=== PATIENT | male | born 1940 | race Caucasian/White ===

== ENCOUNTER 2019-02-17 09:35 | Inpatient (IN) | payer OTHER, MEDICAID ==
[~2019-02-17] VITALS: Ht 167.6 cm; Wt 77.7 kg
[2019-02-17 09:50] VITALS: Ht 167.6 cm; Wt 77.7 kg
--- NOTE | 2019-02-17 10:00 | NUR ---
PT BIB SON C/O CP X3 DAYS, PT STS HE TOOK AN ISOSOBIDE "LAST NIGHT AND IT HELPED, BUT THE PAIN STILL COMES AND GOES". PT PLACED ON FULL CM, CALL LIGHT WITHIN REACH, DAMARI RAILS RAISED FOR SAFETY, IN POSITION OF COMFORT. SON AT BEDSIDE.
[2019-02-17 10:22] LABS: BASOPHIL % 0.8 % (0-2); PLATELET COUNT 233 x10^3mcL (130-400); RED CELL DISTRIBUTION WIDTH 13.3 % (11.5-14.5)
[2019-02-17 10:24] LABS: CALCIUM 8.6 mg/dL (8.5-10.1); CARBON DIOXIDE 29.6 mmol/L (21-32); CHLORIDE SERUM 104 mmol/L (98-107); CREATININE SERUM 1.4 mg/dL (0.7-1.3); GLUCOSE SERUM 109 mg/dL (74-106); POTASSIUM SERUM 4.5 mmol/L (3.5-5.1); SODIUM SERUM 139 mmol/L (136-145)
[2019-02-17 10:30] LABS: ALKALINE PHOSPHATASE 111 U/L (46-116); ALT/SGPT 31 U/L (16-63); AST/SGOT 21 U/L (15-37); BILIRUBIN TOTAL 0.5 mg/dL (0.20-1.00); TOTAL PROTEIN, SERUM 6.9 g/dL (6.4-8.2)
--- NOTE | 2019-02-17 10:33 | NUR ---
DR MAN MADE AWARE OF PT'S VS, AWAITING ORDERS.
[2019-02-17 10:35] LABS: ALBUMIN 3.2 g/dL (3.4-5.0)
--- NOTE | 2019-02-17 10:41 | NUR ---
PT MEDICATED PER EMAR.
[2019-02-17] MEDS ORDERED: HYDROCHLOROTHIA25 MG PO (12:08)
[2019-02-17] MEDS ORDERED: ISOSORBIDE MONO20 MG PO (12:09)
[2019-02-17] MEDS ORDERED: ISOSORBIDE DINIT5 M2 PO (12:10)
[2019-02-17] MEDS ORDERED: ASPIR LOW81 MG PO (12:11)
[2019-02-17] MEDS ORDERED: LOSARTAN POTASS50 M1 PO (12:12)
[2019-02-17] MEDS ORDERED: GOOD SENSE OMEP20 MG PO (12:12)
[2019-02-17] MEDS ORDERED: LIPI20 PO (12:13)
--- NOTE | 2019-02-17 12:48 | NUR ---
REPORT GIVEN TO KARLY BRANDT TO ASSUME CARE OF PT.
--- NOTE | 2019-02-17 12:49 | NUR ---
SPOKE WITH KARLY BRANDT ATTEMPTING TO GIVE REPORT, PER KARLY REQUEST, I WILL CALL BACK IN APPROX 5 MINS.
--- NOTE | 2019-02-17 13:03 | NUR ---
REPORT GIVEN TO RIKKI BRANDT TO ASSUME CARE OF PT.
[2019-02-17 13:39] LABS: MAGNESIUM 1.9 mg/dL (1.8-2.4)
[2019-02-17 13:40] LABS: CHOLESTEROL/HDL RATIO 3.7
[2019-02-17 13:59] VITALS: BP 128/61
[2019-02-17 17:56] VITALS: BP 111/56
--- NOTE | 2019-02-17 18:21 | NUR ---
PATIENT IS STABLE. NO APPARENT SIGNS OF PAIN, SOB, OR RESPIRATORY DISTRESS. PATIENT DENIES CHEST PAIN OR PRESSURE, DIZZINESS, OR HEADACHE. RESTING COMFORTABLY IN BED. FAMILY AT BEDSIDE. PATIENT IS ON ROOM AIR. ALERT AND ORIENTED X4. IV TO RIGHT AC IS SALINE LOCKED. NO EDEMA OR ERYTHEMA NOTED AT SITE. QUESTIONS AND CONCERNS ADDRESSED. SAFETY PRECAUTIONS IN PLACE. WILL ENDORSE CARE TO LINOTYPE WORKER NURSE.
--- NOTE | 2019-02-17 19:19 | NUR ---
ENDORSED CARE TO TEXTILE CONVERTER NURSE CHOLLINZacarias.
--- NOTE | 2019-02-17 19:30 | NUR ---
PT RECIEVED FROM DAY NURSE. PT RESTING IN BED COMFORTABLY, DAUGHTER IN LAW AT BEDSIDE. PT A/OX4, KYRGYZ SPEAKING. NO COMPLAINTS OF PAIN AT THIS TIME. TELE 13, SINUS RONALDO. DENIES CHEST PAIN, DIZZINESS, N/V, AND PALPATATIONS. BREATHING EVEN AND UNLABORED ON RA, DENIES SOB. BOWEL SOUNDS ACTIVE X4, LAST BM 02/16. RAC IV CDI. BED AT LOWEST POSITION, CALL LIGHT WITHIN REACH. WILL CONTINUE TO MONITOR.
[2019-02-17 20:27] VITALS: BP 119/57
[2019-02-17 20:37] LABS: microscopic required? NO
[2019-02-17 20:48] LABS: UA SPECIFIC GRAVITY <=1.005 (1.005-1.035); urine erythrocyte NEGATIVE (NEGATIVE)
[2019-02-17 21:09] LABS: AMPHETAMINE QUAL UR NONE DETECTED (See below)
--- NOTE | 2019-02-17 21:43 | NUR ---
PT COMPLAINING OF 8/10 PAIN, HEADACHE. GAVE PRN TYLENOL. WILL CONTINUE TO MONITOR.
--- NOTE | 2019-02-17 23:21 | NUR ---
PT C/O BEING UNABLE TO SLEEP. DENIES SANCHEZ AT THIS TIME. AMBIEN GIVEN PER ORDER. WILL CONTINUE TO MONITOR.
--- NOTE | 2019-02-18 00:57 | NUR ---
PT RESTING IN BED COMFORTABLY WITH EYES CLOSED. NO S/S OF PAIN AT THIS TIME NO SOB NOTED AT THIS TIME. BREATHING EVEN AND UNLABORED. CALL LIGHT WITHIN REACH. BED AT LOWEST POSITION. WILL CONTINUE TO MONITOR.
--- NOTE | 2019-02-18 02:34 | NUR ---
I HAVE REVIEWED THE DATA COLLECTION BY RIKKI LAWSON: WINNIE ARIAS ENTERED ON 02/17-02/18 I CONCUR WITH THE DATA AND ANY EXCEPTIONS OR COMMENTS ARE LISTED BELOW:
--- NOTE | 2019-02-18 05:41 | NUR ---
PT RESTING IN BED WITH EYES CLOSED. NO S/S OF PAIN OR DISCOMFORT AT THIS TIME. BREATHING EVEN AND UNLABORED, NO S/S OF SB. NO SIGNIFICANT CHANGES THIS SHIFT. BED AT LOWEST POSITION. CALL LIGHT WITHIN REACH. WILL ENDORSE TO DAY SHIFT.
[2019-02-18 05:50] VITALS: BP 129/64
[2019-02-18 07:07] LABS: PLATELET COUNT 212 x10^3mcL (130-400); RED CELL DISTRIBUTION WIDTH 13.1 % (11.5-14.5)
--- NOTE | 2019-02-18 07:10 | NUR ---
RECEIVED PT FROM BRET RN. PT AA/OX4. DENIES CHEST PAIN. NO COMPLAINT OF PAIN AT THIS TIME. NO N/V. NO SOB ON ROOM AIR. SINUS RONALDO ON TELE 13, HR 46. NO DIZZINESS. IV WNL TO RAC, SALINE LOCKED. INSTRUCTED TO USE CALL LIGHT TO CALL FOR ASSISTANCE PRN. VERBALIZED UNDERSTANDING. BED IN LOW POSITION. CALL LIGHT WITHIN REACH. WILL CONTINUE TO MONITOR.
[2019-02-18 07:23] LABS: CALCIUM 8.6 mg/dL (8.5-10.1); CARBON DIOXIDE 24.7 mmol/L (21-32); CHLORIDE SERUM 106 mmol/L (98-107); CREATININE SERUM 1.3 mg/dL (0.7-1.3); GLUCOSE SERUM 97 mg/dL (74-106); POTASSIUM SERUM 4.2 mmol/L (3.5-5.1); SODIUM SERUM 141 mmol/L (136-145)
[2019-02-18 08:10] VITALS: BP 130/57
[2019-02-18 09:40] VITALS: BP 110/50
[2019-02-18 12:00] VITALS: BP 115/58
--- NOTE | 2019-02-18 12:35 | NUR ---
PT TAKEN FOR [employer] BY WHEELCHAIR, TAKEN BY [employer]. PT AA/OX4. DENIES CHEST PAIN AT THIS TIME. NO SOB ON ROOM AIR. IV WNL TO LAC, PATENT AND FLUSHES WELL. SITE WNL. NO N/V. NO SANCHEZ. NO DIZZINESS. AMBULATORY WITH FULL ROM, GAIT STEADY. CALM/COOPERATIVE.
[2019-02-18 16:15] VITALS: BP 117/70
--- NOTE | 2019-02-18 18:16 | NUR ---
PT LAYING IN BED. AA/OX4. DENIES CHEST PAIN. NO SOB ON ROOM AIR. CALM/COOPERATIVE. IV WNL, SALINE LOCKED. FAMILY MEMBER AT BEDSIDE. NO SANCHEZ. NO DIZZINESS. NO N/V. BED IN LOW POSITION. CALL LIGHT WITHIN REACH. WILL ENDORSE TO ONCOMING SHIFT.
[2019-02-18 20:33] VITALS: BP 109/61
--- NOTE | 2019-02-18 21:19 | NUR ---
PATIENT RECEIVED RESTING IN BED. YORUBA SPEAKING. RESPIRATION EVEN AND UNLABORED, ON ROOM AIR. SALINE LOCK TO RIGHT ANTECUBITAL AREA PATENT AND INTACT. NO GI COMPLAINTS NOTED, LBM 02/16/2019. VOIDING FREELY WITHOUT DIFFICULTY. GENERALIZED WEAKNESS, USES CANE TO AMBULATE. RASH BILATERAL FOREARM. DENIES PAIN AT THIS TIME. TELE #13, HR 55. WILL CONTINUE TO MONITOR.
--- NOTE | 2019-02-18 21:52 | NUR ---
PATIENT COMPLAINED OF DIFFICULTY SLEEPING. AMBIEN 5 MG PO GIVEN ORDERED. WILL CONTINUE TO MONITOR.
--- NOTE | 2019-02-19 | NUR ---
RESUMED CARE FROM RIKKI BARRON.
--- NOTE | 2019-02-19 00:19 | NUR ---
PT RESTING IN BED. EYES CLOSED. BREATHING E/U. NO S/S ACUTE DISTRESS. NO SIGNS OF PAIN NOTED. CALL LIGHT WITHIN REACH. WILL CONTINUE TO MONITOR.
[2019-02-19 05:35] VITALS: BP 122/70
--- NOTE | 2019-02-19 05:48 | NUR ---
PT HAD RESTFUL NIGHT. DENIES PAIN. NO S/S ACUTE DISTRESS. DENIES CP. NO CHANGES OVERNIGHT. ALL NEEDS MET AND ATTENDED TO. IV SITE FREE OF ERYTHEMA AND EDEMA. CALL LIGHT WITHIN REACH. SAFETY MEASURES IN PLACE. WILL CONTINUE TO MONITOR.
[2019-02-19 06:47] LABS: BASOPHIL % 0.8 % (0-2); PLATELET COUNT 225 x10^3mcL (130-400); RED CELL DISTRIBUTION WIDTH 13.2 % (11.5-14.5)
[2019-02-19 07:28] LABS: CALCIUM 8.7 mg/dL (8.5-10.1); CARBON DIOXIDE 27.8 mmol/L (21-32); CHLORIDE SERUM 105 mmol/L (98-107); CREATININE SERUM 1.3 mg/dL (0.7-1.3); GLUCOSE SERUM 103 mg/dL (74-106); SODIUM SERUM 142 mmol/L (136-145)
[2019-02-19 07:30] VITALS: BP 143/68
--- NOTE | 2019-02-19 07:45 | NUR ---
AWAKE,ALERT AND ABLE TO VERBALIZED NEEDS. CALL LIGHT W/ IN REACH. DENIES CHEST PAIN AT THIS TIME,ABLE TO AMBULATE W/ CANE.NO ACUTE RESP. DISTRESS NOTED. ATE BREAKFAST WELL. WILL CONT. PLAN OF CARE.
--- NOTE | 2019-02-19 13:00 | NUR ---
PT. ABLE TO AMBULATE W/ CANE IN [address],DR. FRAZIER HERE AND SEEN THE PT. WITH NEW ORDERS OK PT TO GO HOME TODAY PT. MADE AWARE AND AWAITING FOR RIDE.
[2019-02-19 15:00] VITALS: BP 143/68
--- NOTE | 2019-02-19 16:00 | NUR ---
DENIES PAIN THE WHOLE DAY,NO ACUTE DISTRESS NOTED .CALLLIGHT W/ IN REACH.
--- NOTE | 2019-02-19 17:00 | NUR ---
PT. WENT HOME W/ STABLE CONDITION PER W/C ACC. W/ HIS GRANDAUGTER,DISCHARGED INSTRUCTIONS GIVEN TO PT./GRANDAUGHTER AND VERBALIZED UNDERSTANDING OF INSTRUCTIONS GIVEN NO ACUTE DISTRESS NOTED.ESCORTED BY [facility] IN THE LOBBY.
== END 2019-02-19 17:54 | disposition home or self-care (01) | DRG 311 ==
LOC: ED 09:35 → DU 12:13
PROVIDERS: Emergency Medicine; ADMIT Internal Medicine
DX: I24.9 Acute ischemic heart disease, unspecified (principal); I25.119 Atherosclerotic heart disease of native coronary artery with unspecified angina pectoris; I12.9 Hypertensive chronic kidney disease with stage 1 through stage 4 chronic kidney disease, or unspecified chronic kidney disease; N18.2 Chronic kidney disease, stage 2 (mild); E78.5 Hyperlipidemia, unspecified; I25.2 Old myocardial infarction; Z79.82 Long term (current) use of aspirin; Z68.29 Body mass index [BMI] 29.0-29.9, adult; Z95.5 Presence of coronary angioplasty implant and graft
CPT/HCPCS: 83880; A9500; G0378; J2785; J7030; Q0092